=== PATIENT | male | born 1975 | race Caucasian/White ===

== ENCOUNTER 2020-07-24 20:35 | Observation (INO) | payer OTHER ==
[2020-07-24] MEDS ORDERED: MORPHINE SULFATE 2 MG INJ IV ONE (20:50)
[2020-07-24] MEDS ORDERED: Zofran 4 MG/2 ML VIAL IV ONE (20:50)
[2020-07-24] MEDS ORDERED: Sodium Chloride 0.9% 1000 ML 1,000 ML IV SCH (21:00)
[2020-07-24] MEDS ORDERED: MORPHINE SULFATE 2 MG INJ ONE (21:01)
[2020-07-24] MEDS ORDERED: Sodium Chloride 0.9% 1000 ML 1,000 ML ONE (21:01)
[2020-07-24] MEDS ORDERED: Zofran 4 MG/2 ML VIAL ONE (21:01)
--- NOTE | 2020-07-24 21:08 | ERPHSYRPT ---
- History of Present Illness Time Seen by Provider: 07/24/20 20:55 Historian: patient Exam Limitations: no limitations Patient Subjective Stated Complaint: pt c/o mid abd pain at belly button. Pt states, "I picked up the front end of the envelope addresser to get the water out of it and I felt a pulling". Triage Nursing Assessment: Pt c/o pain to umbilical area. Pt's abd is lg, round, obese with active bs x4 quad, nontender on palpation. Pt states, "i picked up the front end of the envelope addresser to get the water out of it and I felt a pulling feeling". Ice pack applied to area and pt placed in reverse [place]. Physician History: Patient is a 44-year-old male presents to our ED with complaints of pain at the periumbilical region. Patient states he has an umbilical hernia that occurred several months back while bench pressing with his son. Patient followed up with his primary care doctor and told him he had a umbilical hernia. He did not have any significant pain at that time. However today patient was lifting a lawn more and felt an acute onset pain at the periumbilical region. Pain described as an ache that is localized. No radiation. Pain worse with palpation to the umbilicus. Pain improved with rest. No blood in stool. No trauma. No fever. No nausea or vomiting. No diarrhea or rash. Symptoms are mild to moderate in intensity. Patient voices no other complaints at this time. Timing/Duration: today Activities at Onset: other (Lifting) Quality: aching Abdominal Pain Onset Location: other (Pain at the umbilicus) Pain Radiation: no radiation Severity of Pain-Max: moderate Severity of Pain-Current: mild Modifying Factors: Improves With: coughing, movement Associated Symptoms: denies symptoms Previous symptoms: other (History of umbilical hernia.) Allergies/Adverse Reactions: No Known Drug Allergies Allergy (Verified 07/24/20 21:04) Home Medications: Gabapentin [Neurontin] 800 mg PO TID 03/05/16 [History] Atorvastatin Calcium [Lipitor] 80 mg PO DAILY 07/24/20 [History] Losartan/Hydrochlorothiazide [Losartan-Hctz 50-12.5 mg Tab] 1 tab PO DAILY 07/24/20 [History] Tizanidine HCl 2 mg PO TID 07/24/20 [History] Tramadol HCl 50 mg [Ultram 50 mg] 1 tab PO QID 07/24/20 [History] Hx Tetanus, Diphtheria Vaccination/Date Given: Yes Hx Influenza Vaccination/Date Given: No Hx Pneumococcal Vaccination/Date Given: No Immunizations Up to Date: Yes Travel Risk - International Travel Have you traveled outside of the country in past 3 weeks: No - Coronavirus Screening Are you exhibiting any of the following symptoms?: No Close contact with a COVID-19 positive Pt in past 14-21 Days: No - Vaccine Status Have you recieved a Covid-19 vaccination: No - Review of Systems Constitutional: No Symptoms, No Fever, No Chills Eyes: No Symptoms Ears, Nose, & Throat: No Symptoms Respiratory: No Symptoms, No Cough, No Dyspnea Cardiac: No Symptoms, No Chest Pain, No Edema, No Syncope Abdominal/Gastrointestinal: No Symptoms, No Abdominal Pain, No Nausea, No Vomiting, No Diarrhea Genitourinary Symptoms: No Symptoms, No Dysuria Musculoskeletal: No Symptoms, No Back Pain, No Neck Pain Skin: No Symptoms, No Rash Neurological: No Symptoms, No Dizziness, No Focal Weakness, No Sensory Changes Psychological: No Symptoms Endocrine: No Symptoms Hematologic/Lymphatic: No Symptoms Immunological/Allergic: No Symptoms All Other Systems: Reviewed and Negative - Past Medical History Pertinent Past Medical History: Yes Neurological History: No Pertinent History Cardiac History: High Cholesterol, Hypertension Respiratory History: Bronchitis Endocrine Medical History: No Pertinent History Musculoskeletal History: Arthritis, Other GI Medical History: No Pertinent History History: No Pertinent History Psycho-Social History: No Pertinent History Male Reproductive Disorders: No Pertinent History Other Medical History: herniated disk L4-L5. back pain - Past Surgical History Past Surgical History: Yes Neuro Surgical History: No Pertinent History Cardiac: No Pertinent History Respiratory: No Pertinent History Gastrointestinal: No Pertinent History Genitourinary: No Pertinent History Musculoskeletal: No Pertinent History Male Surgical History: No Pertinent History Other Surgical History: cyst on buttock removed - Social History Smoking Status: Current every day smoker How long have you smoked: 24 yrs Exposure to second hand smoke: Yes Drug Use: none Patient Lives Alone: No - Nursing Vital Signs Nursing Vital Signs: Initial Vital Signs Temperature 98.2 F 07/24/20 20:48 Pulse Rate 116 H 07/24/20 20:48 Respiratory Rate 22 07/24/20 20:48 Blood Pressure 140/82 07/24/20 20:48 O2 Sat by Pulse Oximetry 97 07/24/20 20:48 Pain Scale Pain Intensity 0 - Physical Exam General Appearance: no apparent distress, alert Eye Exam: PERRL/EOMI, eyes nml inspection Ears, Nose, Throat Exam: normal ENT inspection, pharynx normal, moist mucous membranes Neck Exam: normal inspection, non-tender, supple, full range of motion Respiratory Exam: normal breath sounds, lungs clear, No respiratory distress Cardiovascular Exam: regular rate/rhythm, normal heart sounds Gastrointestinal/Abdomen Exam: soft, tenderness, other (Tenderness to palpation at the umbilicus.), No mass Back Exam: normal inspection, normal range of motion, No CVA tenderness, No vertebral tenderness Extremity Exam: normal inspection, normal range of motion, pelvis stable Neurologic Exam: alert, oriented x 3, cooperative, normal mood/affect, nml cerebellar function, sensation nml, No motor deficits Skin Exam: normal color, warm, dry Lymphatic Exam: No adenopathy SpO2 Interpretation: normal SpO2: 97 O2 Delivery: Room Air - Course Nursing assessment & vital signs reviewed: Yes - CT Exams Abdomen/Pelvis CT Interpretation: Tele-radiologist Report (Mild left periumbilical anterior wall defect with small bowel herniation through the defect. No definitive evidence of incarceration or obstruction.) Ordered Tests: Active Orders 24 hr Category Date Time Status IV Insertion STAT Care 07/24/20 20:50 Active ABDOMEN AND PELVIS W CONTRAST [CT] Stat Exams 07/24/20 20:50 Taken CBC W DIFF Stat Lab 07/24/20 21:00 Completed CMP Stat Lab 07/24/20 21:00 Completed LIPASE Stat Lab 07/24/20 21:00 Completed Manual Differential NC Stat Lab 07/24/20 21:00 Completed Transfer Order Routine Transfer 07/25/20 Ordered Medication Summary Generic Name Dose Route Start Last Admin Trade Name Freq PRN Reason Stop Dose Admin Sodium Chloride 1,000 mls @ 100 mls/hr 07/24/20 21:00 07/24/20 21:04 Sodium Chloride 0.9% 1000 Ml IV 08/23/20 20:59 100 mls/hr .Q10H ROSALES Administration Discontinued Medications Generic Name Dose Route Start Last Admin Trade Name Freq PRN Reason Stop Dose Admin Piperacillin Sod/Tazobactam 100 mls @ 200 mls/hr 07/25/20 00:24 07/25/20 00: 37 Sod 3.375 gm/ Sodium Chloride IV 07/25/20 00:53 200 mls/hr STAT ONE Administration Sodium Chloride Confirm 07/25/20 00:33 Sodium Chloride 100ml Mini-Bag Plus Administered 07/25/20 00:34 Dose 100 mls @ ud IV .STK-MED ONE Morphine Sulfate 2 mg 07/24/20 20:50 07/24/20 21:04 Morphine Sulfate 2 Mg Inj IV 07/24/20 20:51 2 mg STAT ONE Administration Morphine Sulfate Confirm 07/24/20 21:01 Morphine Sulfate 2 Mg Inj Administered 07/24/20 21:02 Dose 2 mg .ROUTE .STK-MED ONE Morphine Sulfate 4 mg 07/25/20 00:16 07/25/20 00:26 Morphine Sulfate 4 Mg Inj IV 07/25/20 00:17 4 mg STAT ONE Administration Morphine Sulfate Confirm 07/25/20 00:24 Morphine Sulfate 4 Mg Inj Administered 07/25/20 00:25 Dose 4 mg .ROUTE .STK-MED ONE Ondansetron HCl 4 mg 07/24/20 20:50 07/24/20 21:04 Zofran 4 Mg/2 Ml Vial IV 07/24/20 20:51 4 mg STAT ONE Administration Ondansetron HCl Confirm 07/24/20 21:01 Zofran 4 Mg/2 Ml Vial Administered 07/24/20 21:02 Dose 4 mg .ROUTE .STK-MED ONE Piperacillin Sod/Tazobactam Sod Confirm 07/25/20 00:33 Zosyn 3.375 Gm Vial Administered 07/25/20 00:34 Dose 3.375 gm IV .STK-MED ONE Lab/Rad Data: Laboratory Result Diagrams 07/24/20 21:00 07/24/20 21:00 Laboratory Results 07/25/20 07/24/20 07/24/20 Range/Units 00:49 21:00 21:00 WBC 15.9 H (4.0-10.5) K/mm3 RBC 4.80 (4.1-5.6) M/mm3 Hgb 14.9 (12.5-18.0) gm/dl Hct 45.9 (42-50) % MCV 95.6 (78-100) fl MCH 31.0 (26-32) pg MCHC 32.5 (32-36) g/dl RDW 14.0 (11.5-14.0) % Plt Count 351 (150-450) K/mm3 MPV 9.3 (7.5-11.0) fl Segmented Neutrophils 65 (36.-66.) % Lymphocytes (Manual) 23 L (24-44) % Monocytes (Manual) 9 (0.0-12.0) % Eosinophils (Manual) 2 (0.00-3.0) % Basophils (Manual) 1 (0.0-1.0) % Platelet Estimate NORMAL (NORMAL) RBC Morphology NORMAL Sodium 137 (137-145) mmol/L Potassium 3.9 (3.5-5.1) mmol/L Chloride 98 (98-107) mmol/L Carbon Dioxide 29 (22-30) mmol/L Anion Gap 13.5 (5-15) MEQ/L BUN 22 H (9-20) mg/dL Creatinine 1.16 (0.66-1.25) mg/dL Estimated GFR > 60.0 ML/MIN Glucose 107 H (74-106) mg/dL Calcium 9.4 (8.4-10.2) mg/dL Total Bilirubin 0.60 (0.2-1.3) mg/dL AST 74 H (17-59) U/L ALT 114 H (0-50) U/L Alkaline Phosphatase 99 (38-126) U/L Serum Total Protein 7.5 (6.3-8.2) g/dL Albumin 4.7 (3.5-5.0) g/dL Lipase 277 (23-300) U/L Influenza Type A Ag NEGATIVE (NEGATIVE) Influenza Type B Ag NEGATIVE (NEGATIVE) RSV (PCR) NEGATIVE (Negative) SARS-CoV-2 (PCR) NEGATIVE (NEGATIVE) - Progress Progress: improved Progress Note: We attempted to reduce patient's periumbilical hernia while in Trendelenburg and after application of cold pack to the involved area. However this was not successful. Patient continued to complain of pain rated 4 out of 10. Additional morphine ordered. Labs show a leukocytosis. Otherwise negative. Case discussed with Dr. Matthews on-call general surgery. We will admit patient to hospitalist with general surgery on consult. We will keep patient n.p.o. overnight. Due to the leukocytosis and abdominal pain patient will receive a dose of Zosyn IV. Plan of care discussed with patient. He agrees to admission to [facility] for further evaluation and treatment. Patient is Covid negative 07/25/20 00:26 07/25/20 02:[address] Emmie (Case discussed Dr. Marie who accepts admi ssion to observation.), Other (Case discussed with Dr. Judson Matthews. He will see patient in hospital as a consult.) Counseled pt/family regarding: lab results, diagnosis, rad results - Departure Departure Disposition: Home Clinical Impression: Paraumbilical hernia, Hepatic cyst, Gall bladder polyp, Gallstone, Facet arthritis, degenerative, L5-S1 level, lumbosacral spine, Inguinal hernia, Leukocytosis Condition: Stable Critical Care Time: No Referrals: LAKSHMI BULLOCK, QUANTITATIVE STRATEGY ANALYST [Primary Care Provider] -
[2020-07-24 21:26] LABS: Hematocrit 45.9 % (42-50); Hemoglobin 14.9 gm/dl (12.5-18.0); Mean Cell Volume 95.6 fl (78-100); Mean Corpuscular Hgb Concent. 32.5 g/dl (32-36); Mean Platelet Volume 9.3 fl (7.5-11.0); Platelet Count 351 K/mm3 (150-450); White Blood Count 15.9 K/mm3 (4.0-10.5)
[2020-07-24 21:41] LABS: ALBUMIN 4.7 g/dL (3.5-5.0); ALKALINE PHOSPHATASE 99 U/L (38-126); ANION GAP 13.5 MEQ/L (5-15); BLOOD UREA NITROGEN 22 mg/dL (9-20); CHLORIDE 98 mmol/L (98-107); Calcium 9.4 mg/dL (8.4-10.2); Carbon Dioxide 29 mmol/L (22-30); Creatinine 1 1.16 mg/dL (0.66-1.25); EST GLOMERULAR FILTRATION RATE > 60.0 ML/MIN; Glucose 107 mg/dL (74-106); LIPASE 277 U/L (23-300); Potassium 3.9 mmol/L (3.5-5.1); SGOT/AST 74 U/L (17-59); SGPT/ALT 114 U/L (0-50); SODIUM 137 mmol/L (137-145); Total Protein 7.5 g/dL (6.3-8.2)
[2020-07-24 23:10] LABS: Basophil 1 % (0.0-1.0); Eosinophil 2 % (0.00-3.0); Lymphocytes 23 % (24-44); Monocyte 9 % (0.0-12.0); Neutrophils 65 % (36.-66.); Platelet Estimate NORMAL (NORMAL); Total Cells Counted 100
[2020-07-25] MEDS ORDERED: MORPHINE SULFATE 4 MG INJ IV ONE (00:16)
[2020-07-25] MEDS ORDERED: MORPHINE SULFATE 4 MG INJ ONE (00:24)
[2020-07-25] MEDS ORDERED: Zosyn 3.375 GM Vial 3.375 GM in Sodium Chloride 100ML MINI-BAG PLUS 100 ML IV ONE (00:24)
[2020-07-25] MEDS ORDERED: Zosyn 3.375 GM Vial IV ONE (00:33)
[2020-07-25] MEDS ORDERED: Sodium Chloride 100ML MINI-BAG PLUS 100 ML IV ONE (00:33)
[2020-07-25 01:43] LABS: INFLUENZA A NEGATIVE (NEGATIVE); INFLUENZA B NEGATIVE (NEGATIVE); RESPIRATORY SYNCTIAL VIRUS NEGATIVE (Negative)
[2020-07-25] MEDS ORDERED: Zofran 4 MG/2 ML VIAL IV PRN (02:44)
[2020-07-25] MEDS: Sodium Chloride 0.9% 1000 ML 1,000 ML IV SCH ×3 (03:50→22:22)
[2020-07-25 05:35] LABS: BASOPHIL % 0.2 % (0.0-0.4); Basophil (Absolute #) 0.02 (0-0.4); Eosinophil % 2.4 % (0.00-5.0); Eosinophil (Absolute #) 0.28 (0-0.5); Hematocrit 42.3 % (42-50); Hemoglobin 13.7 gm/dl (12.5-18.0); Lymphocyte (Absolute #) 3.31 (1.0-4.6); Lymphocytes % 28.3 % (24.0-44.0); Mean Corpuscular Hemoglobin 31.4 pg (26-32); Mean Corpuscular Hgb Concent. 32.4 g/dl (32-36); Mean Platelet Volume 9.3 fl (7.5-11.0); Monocytes % 8.5 % (0.0-12.0); Neutrophil % 60.6 % (36.0-66.0); Platelet Count 301 K/mm3 (150-450); Red Blood Count 4.36 M/mm3 (4.1-5.6); Red Cell Distribution Width 13.9 % (11.5-14.0); White Blood Count 11.7 K/mm3 (4.0-10.5)
[2020-07-25 06:12] LABS: ALBUMIN 4.1 g/dL (3.5-5.0); ALKALINE PHOSPHATASE 89 U/L (38-126); ANION GAP 16.6 MEQ/L (5-15); BLOOD UREA NITROGEN 18 mg/dL (9-20); CHLORIDE 102 mmol/L (98-107); Calcium 8.7 mg/dL (8.4-10.2); Carbon Dioxide 23 mmol/L (22-30); Creatinine 1 0.95 mg/dL (0.66-1.25); EST GLOMERULAR FILTRATION RATE > 60.0 ML/MIN; Glucose 199 mg/dL (74-106); Potassium 3.7 mmol/L (3.5-5.1); SGOT/AST 53 U/L (17-59); SGPT/ALT 81 U/L (0-50); SODIUM 138 mmol/L (137-145); Total Protein 6.6 g/dL (6.3-8.2)
--- NOTE | 2020-07-25 08:56 | XRAY ---
Indication: Periumbilical pain. Multiple contiguous axial images obtained through the abdomen and pelvis using 80 cc Isovue 370 contrast. Comparison: None Lung bases demonstrates tiny right lower lobe calcified granuloma. No infiltrate or effusion. Heart not enlarged. Stomach is distended with food/fluid. Noncontrasted stomach and bowel loops appear nonobstructed. Appendix not seen. No free fluid/air. Liver demonstrates diffuse fatty attenuation with 8 mm left lobe cyst versus hemangioma. Tiny gallstone/gravel near the neck of the gallbladder. Remaining liver, gallbladder, pancreas, spleen, adrenal glands, kidneys, ureters, and bladder unremarkable. Minimal aortoiliac calcifications. No AAA or pathologic retroperitoneal lymphadenopathy. Osseous structures intact with L5-S1 degenerative disc disc space loss and vacuum disc phenomena. Small umbilical hernia with a knuckle of small bowel herniating without incarceration/obstruction. Impression: 1. Small umbilical hernia with a knuckle of herniated small bowel loop without complications. 2. Incidental fatty liver, tiny hepatic cyst/hemangioma, and tiny gallstones/gravel. Comment: Preliminary interpretation was made by [facility]. No critical discrepancy.
[2020-07-25] MEDS: MORPHINE SULFATE 4 MG INJ IV PRN ×4 (09:03→22:25)
--- NOTE | 2020-07-25 09:10 | PCM.HP ---
History of Present Illness - Chief Complaint Chief Complaint: Periumbilical hernia. History of Present Illness: is a 44 year old male. hx per chart review and d/w pt 44yo no prior abdominal surgeries. c/o pain at umbilical area. worse with activity. came to ED. seemed reducible but still painful and immediately recurrent so pt admitted to obs. pain is doing better now, but still bothersome. "Patient Subjective Stated Complaint: pt c/o mid abd pain at belly button. Pt states, "I picked up the front end of the drilling engineer to get the water out of it and I felt a pulling". Triage Nursing Assessment: Pt c/o pain to umbilical area. Pt's abd is lg, round, obese with active bs x4 quad, nontender on palpation. Pt states, "i picked up the front end of the drilling engineer to get the water out of it and I felt a pulling feeling". Ice pack applied to area and pt placed in reverse trendelburg. Physician History: Patient is a 44-year-old male presents to our ED with complaints of pain at the periumbilical region. Patient states he has an umbilical hernia that occurred several months back while bench pressing with his son. Patient followed up with his primary care doctor and told him he had a umbilical hernia. He did not have any significant pain at that time. However today patient was lifting a lawn more and felt an acute onset pain at the periumbilical region. Pain described as an ache that is localized. No radiation. Pain worse with palpation to the umbilicus. Pain improved with rest. No blood in stool. No trauma. No fever. No nausea or vomiting. No diarrhea or rash. Symptoms are mild to moderate in intensity. Patient voices no other complaints at this time. Timing/Duration: today Activities at Onset: other (Lifting) Quality: aching Abdominal Pain Onset Location: other (Pain at the umbilicus) Pain Radiation: no radiation Severity of Pain-Max: moderate Severity of Pain-Current: mild Modifying Factors: Improves With: coughing, movement Associated Symptoms: denies symptoms Previous symptoms: other (History of umbilical hernia.) Allergies/Adverse Reactions: No Known Drug Allergies Allergy (Verified 07/24/20 21:04) Home Medications: Gabapentin [Neurontin] 800 mg PO TID 03/05/16 [History] Atorvastatin Calcium [Lipitor] 80 mg PO DAILY 07/24/20 [History] Losartan/Hydrochlorothiazide [Losartan-Hctz 50-12.5 mg Tab] 1 tab PO DAILY 07/24/20 [History] Tizanidine HCl 2 mg PO TID 07/24/20 [History] Tramadol HCl 50 mg [Ultram 50 mg] 1 tab PO QID 07/24/20 [History] Hx Tetanus, Diphtheria Vaccination/Date Given: Yes Hx Influenza Vaccination/Date Given: No Hx Pneumococcal Vaccination/Date Given: No Immunizations Up to Date: Yes Travel Risk - International Travel Have you traveled outside of the country in past 3 weeks: No - Coronavirus Screening Are you exhibiting any of the following symptoms?: No Close contact with a COVID-19 positive Pt in past 14-21 Days: No - Vaccine Status Have you recieved a Covid-19 vaccination: No - Review of Systems Constitutional: No Symptoms, No Fever, No Chills Eyes: No Symptoms Ears, Nose, & Throat: No Symptoms Respiratory: No Symptoms, No Cough, No Dyspnea Cardiac: No Symptoms, No Chest Pain, No Edema, No Syncope Abdominal/Gastrointestinal: No Symptoms, No Abdominal Pain, No Nausea, No Vomiting, No Diarrhea Genitourinary Symptoms: No Symptoms, No Dysuria Musculoskeletal: No Symptoms, No Back Pain, No Neck Pain Skin: No Symptoms, No Rash Neurological: No Symptoms, No Dizziness, No Focal Weakness, No Sensory Changes Psychological: No Symptoms Endocrine: No Symptoms Hematologic/Lymphatic: No Symptoms Immunological/Allergic: No Symptoms All Other Systems: Reviewed and Negative - Past Medical History Pertinent Past Medical History: Yes Neurological History: No Pertinent History Cardiac History: High Cholesterol, Hypertension Respiratory History: Bronchitis Endocrine Medical History: No Pertinent History Musculoskeletal History: Arthritis, Other GI Medical History: No Pertinent History History: No Pertinent History Psycho-Social History: No Pertinent History Male Reproductive Disorders: No Pertinent History Other Medical History: herniated disk L4-L5. back pain - Past Surgical History Past Surgical History: Yes Neuro Surgical History: No Pertinent History Cardiac: No Pertinent History Respiratory: No Pertinent History Gastrointestinal: No Pertinent History Genitourinary: No Pertinent History Musculoskeletal: No Pertinent History Male Surgical History: No Pertinent History Other Surgical History: cyst on buttock removed - Social History Smoking Status: Current every day smoker How long have you smoked: 24 yrs Exposure to second hand smoke: Yes Drug Use: none Patient Lives Alone: No" Medications & Allergies Home Medications: Home Medication List Gabapentin [Neurontin] 800 mg PO TID 03/05/16 [History Confirmed 07/24/20] Atorvastatin Calcium [Lipitor] 80 mg PO DAILY 07/24/20 [History Confirmed 07/24/20] Losartan/Hydrochlorothiazide [Losartan-Hctz 50-12.5 mg Tab] 1 tab PO DAILY 07/24/20 [History Confirmed 07/24/20] Tizanidine HCl 2 mg PO TID 07/24/20 [History Confirmed 07/25/20] Tramadol HCl 50 mg [Ultram 50 mg] 1 tab PO QID 07/24/20 [History Confirmed 07/24/20] Allergies/Adverse Reactions: Allergies Allergy/AdvReac Type Severity Reaction Status Date / Time No Known Drug Allergies Allergy Verified 07/25/20 02:56 - Past Medical History Past Medical History: Yes Neurological History: No Pertinent History ENT History: No Pertinent History Cardiac History: High Cholesterol, Hypertension Respiratory History: Asthma, Bronchitis Endocrine Medical History: No Pertinent History Musculoskelatal History: Arthritis, Other GI Medical History: No Pertinent History History: No Pertinent History Pyscho-Social History: No Pertinent History Male Reproductive Disorders: No Pertinent History Comment: herniated disk L4-L5. back pain - Past Surgical History Past Surgical History: Yes Neuro Surgical History: No Pertinent History Cardiac History: No Pertinent History Respiratory Surgery: No Pertinent History GI Surgical History: No Pertinent History Genitourinary Surgical Hx: No Pertinent History Musculskeletal Surgical Hx: No Pertinent History Male Surgical History: No Pertinent History Other Surgical History: cyst on buttock removed - Social History Smoking Status: Current every day smoker How long have you smoked: 20 years Exposure to second hand smoke: Yes Alcohol: Rarely Drug Use: none - Physical Exam Vital Signs: Vital Signs - 24 hr Temp Pulse Resp BP Pulse Ox 07/25/20 08:28 94 L 07/25/20 07:31 97.9 F 72 16 140/72 98 07/25/20 05:11 97.7 F 82 16 120/78 97 07/25/20 03:36 94 L 07/25/20 02:44 97.7 F 82 16 120/78 97 07/25/20 02:40 97.7 F 82 16 120/78 97 07/25/20 02:24 97 07/25/20 02:00 83 18 116/84 96 07/25/20 01:00 84 16 122/74 94 L 07/25/20 00:00 90 18 144/97 97 07/24/20 23:00 92 H 20 105/71 97 07/24/20 22:00 98 H 20 118/68 98 07/24/20 21:00 104 H 20 114/81 96 07/24/20 20:48 98.2 F 116 H 22 140/82 97 General Appearance: no apparent distress, alert Neurologic Exam: alert, oriented x 3 Eye Exam: eyes nml inspection, scleral icterus Neck Exam: normal inspection Respiratory Exam: No respiratory distress Cardiovascular Exam: regular rate/rhythm Gastrointestinal/Abdomen Exam: soft, tenderness, other (umbo hernia 1.5cm defect, reducible. mildly ttp. no r/g.), No distention, No mass Skin Exam: warm, dry Results - Labs Lab/Micro Results: Lab Results-Last 24 Hours 07/24/20 07/24/20 07/25/20 Range/Units 21:00 21:00 00:49 WBC 15.9 H (4.0-10.5) K/mm3 RBC 4.80 (4.1-5.6) M/mm3 Hgb 14.9 (12.5-18.0) gm/dl Hct 45.9 (42-50) % MCV 95.6 (78-100) fl MCH 31.0 (26-32) pg MCHC 32.5 (32-36) g/dl RDW 14.0 (11.5-14.0) % Plt Count 351 (150-450) K/mm3 MPV 9.3 (7.5-11.0) fl Gran % (36.0-66.0) % Eos # (Auto) (0-0.5) Absolute Lymphs (auto) (1.0-4.6) Absolute Monos (auto) (0.0-1.3) Lymphocytes % (24.0-44.0) % Monocytes % (0.0-12.0) % Eosinophils % (0.00-5.0) % Basophils % (0.0-0.4) % Absolute Granulocytes (1.4-6.9) Segmented Neutrophils 65 (36.-66.) % Lymphocytes (Manual) 23 L (24-44) % Monocytes (Manual) 9 (0.0-12.0) % Eosinophils (Manual) 2 (0.00-3.0) % Basophils (Manual) 1 (0.0-1.0) % Basophils # (0-0.4) Platelet Estimate NORMAL (NORMAL) RBC Morphology NORMAL Sodium 137 (137-145) mmol/L Potassium 3.9 (3.5-5.1) mmol/L Chloride 98 (98-107) mmol/L Carbon Dioxide 29 (22-30) mmol/L Anion Gap 13.5 (5-15) MEQ/L BUN 22 H (9-20) mg/dL Creatinine 1.16 (0.66-1.25) mg/dL Estimated GFR > 60.0 ML/MIN Glucose 107 H (74-106) mg/dL Calcium 9.4 (8.4-10.2) mg/dL Total Bilirubin 0.60 (0.2-1.3) mg/dL AST 74 H (17-59) U/L ALT 114 H (0-50) U/L Alkaline Phosphatase 99 (38-126) U/L Serum Total Protein 7.5 (6.3-8.2) g/dL Albumin 4.7 (3.5-5.0) g/dL Lipase 277 (23-300) U/L Influenza Type A Ag NEGATIVE (NEGATIVE) Influenza Type B Ag NEGATIVE (NEGATIVE) RSV (PCR) NEGATIVE (Negative) SARS-CoV-2 (PCR) NEGATIVE (NEGATIVE) 07/25/20 07/25/20 Range/Units 05:07 05:07 WBC 11.7 H (4.0-10.5) K/mm3 RBC 4.36 (4.1-5.6) M/mm3 Hgb 13.7 (12.5-18.0) gm/dl Hct 42.3 (42-50) % MCV 97.0 (78-100) fl MCH 31.4 (26-32) pg MCHC 32.4 (32-36) g/dl RDW 13.9 (11.5-14.0) % Plt Count 301 (150-450) K/mm3 MPV 9.3 (7.5-11.0) fl Gran % 60.6 (36.0-66.0) % Eos # (Auto) 0.28 (0-0.5) Absolute Lymphs (auto) 3.31 (1.0-4.6) Absolute Monos (auto) 1.00 (0.0-1.3) Lymphocytes % 28.3 (24.0-44.0) % Monocytes % 8.5 (0.0-12.0) % Eosinophils % 2.4 (0.00-5.0) % Basophils % 0.2 (0.0-0.4) % Absolute Granulocytes 7.10 H (1.4-6.9) Segmented Neutrophils (36.-66.) % Lymphocytes (Manual) (24-44) % Monocytes (Manual) (0.0-12.0) % Eosinophils (Manual) (0.00-3.0) % Basophils (Manual) (0.0-1.0) % Basophils # 0.02 (0-0.4) Platelet Estimate (NORMAL) RBC Morphology Sodium 138 (137-145) mmol/L Potassium 3.7 (3.5-5.1) mmol/L Chloride 102 (98-107) mmol/L Carbon Dioxide 23 (22-30) mmol/L Anion Gap 16.6 H (5-15) MEQ/L BUN 18 (9-20) mg/dL Creatinine 0.95 (0.66-1.25) mg/dL Estimated GFR > 60.0 ML/MIN Glucose 199 H (74-106) mg/dL Calcium 8.7 (8.4-10.2) mg/dL Total Bilirubin 0.70 (0.2-1.3) mg/dL AST 53 (17-59) U/L ALT 81 H (0-50) U/L Alkaline Phosphatase 89 (38-126) U/L Serum Total Protein 6.6 (6.3-8.2) g/dL Albumin 4.1 (3.5-5.0) g/dL Lipase (23-300) U/L Influenza Type A Ag (NEGATIVE) Influenza Type B Ag (NEGATIVE) RSV (PCR) (Negative) SARS-CoV-2 (PCR) (NEGATIVE) - Radiology Impressions Radiology Exams & Impressions: Radiology Procedures Category Date Time Status ABDOMEN AND PELVIS W CONTRAST [CT] Stat Exams 07/24/20 20:50 Completed - Other Procedures and Tests Respiratory Therapy 07/25/20 05:34 Incentive Spirometry UD Assessment/Plan (1) Paraumbilical hernia Current Visit: Yes Status: Acute Assessment & Plan: reducible umbilical hernia. symptomatic. pt felt to be high risk of failing outpt treatment due to pain and poor understanding on the hernia. -07/26 umbilical hernia repair unless pt changes his mind and wants outpt scheduled. Code(s): K42.9 - UMBILICAL HERNIA WITHOUT OBSTRUCTION OR GANGRENE
[2020-07-25] MEDS: NICODERM CQ 14 MG TOP SCH (16:39)
--- NOTE | 2020-07-25 18:27 | PCM.NOTE ---
Date and Time: 07/25/201826 OBJECTIVE DATA Vital Signs: Vital Signs - 24 hr Temp Pulse Resp BP Pulse Ox 07/25/20 16:00 97.9 F 96 H 16 126/80 92 L 07/25/20 11:35 98.4 F 90 11 L 129/60 94 L 07/25/20 08:28 94 L 07/25/20 07:31 97.9 F 72 16 140/72 98 07/25/20 05:11 97.7 F 82 16 120/78 97 07/25/20 03:36 94 L 07/25/20 02:44 97.7 F 82 16 120/78 97 07/25/20 02:40 97.7 F 82 16 120/78 97 07/25/20 02:24 97 07/25/20 02:00 83 18 116/84 96 07/25/20 01:00 84 16 122/74 94 L 07/25/20 00:00 90 18 144/97 97 07/24/20 23:00 92 H 20 105/71 97 07/24/20 22:00 98 H 20 118/68 98 07/24/20 21:00 104 H 20 114/81 96 07/24/20 20:48 98.2 F 116 H 22 140/82 97 Pain Assessment - Last Documented Pain Intensity 4 Pain Scale Used 0-10 Pain Scale Intake and Output: Intake & Output 07/23/20 07/24/20 07/25/20 07/26/20 11:59 11:59 11:59 11:59 Intake Total 240 820 Balance 240 820 Weight 107.2 kg Lab Results: Lab Results-Last 24 Hours 07/24/20 07/24/20 07/25/20 Range/Units 21:00 21:00 00:49 WBC 15.9 H (4.0-10.5) K/mm3 RBC 4.80 (4.1-5.6) M/mm3 Hgb 14.9 (12.5-18.0) gm/dl Hct 45.9 (42-50) % MCV 95.6 (78-100) fl MCH 31.0 (26-32) pg MCHC 32.5 (32-36) g/dl RDW 14.0 (11.5-14.0) % Plt Count 351 (150-450) K/mm3 MPV 9.3 (7.5-11.0) fl Gran % (36.0-66.0) % Eos # (Auto) (0-0.5) Absolute Lymphs (auto) (1.0-4.6) Absolute Monos (auto) (0.0-1.3) Lymphocytes % (24.0-44.0) % Monocytes % (0.0-12.0) % Eosinophils % (0.00-5.0) % Basophils % (0.0-0.4) % Absolute Granulocytes (1.4-6.9) Segmented Neutrophils 65 (36.-66.) % Lymphocytes (Manual) 23 L (24-44) % Monocytes (Manual) 9 (0.0-12.0) % Eosinophils (Manual) 2 (0.00-3.0) % Basophils (Manual) 1 (0.0-1.0) % Basophils # (0-0.4) Platelet Estimate NORMAL (NORMAL) RBC Morphology NORMAL Sodium 137 (137-145) mmol/L Potassium 3.9 (3.5-5.1) mmol/L Chloride 98 (98-107) mmol/L Carbon Dioxide 29 (22-30) mmol/L Anion Gap 13.5 (5-15) MEQ/L BUN 22 H (9-20) mg/dL Creatinine 1.16 (0.66-1.25) mg/dL Estimated GFR > 60.0 ML/MIN Glucose 107 H (74-106) mg/dL Calcium 9.4 (8.4-10.2) mg/dL Total Bilirubin 0.60 (0.2-1.3) mg/dL AST 74 H (17-59) U/L ALT 114 H (0-50) U/L Alkaline Phosphatase 99 (38-126) U/L Serum Total Protein 7.5 (6.3-8.2) g/dL Albumin 4.7 (3.5-5.0) g/dL Lipase 277 (23-300) U/L Influenza Type A Ag NEGATIVE (NEGATIVE) Influenza Type B Ag NEGATIVE (NEGATIVE) RSV (PCR) NEGATIVE (Negative) SARS-CoV-2 (PCR) NEGATIVE (NEGATIVE) 07/25/20 07/25/20 Range/Units 05:07 05:07 WBC 11.7 H (4.0-10.5) K/mm3 RBC 4.36 (4.1-5.6) M/mm3 Hgb 13.7 (12.5-18.0) gm/dl Hct 42.3 (42-50) % MCV 97.0 (78-100) fl MCH 31.4 (26-32) pg MCHC 32.4 (32-36) g/dl RDW 13.9 (11.5-14.0) % Plt Count 301 (150-450) K/mm3 MPV 9.3 (7.5-11.0) fl Gran % 60.6 (36.0-66.0) % Eos # (Auto) 0.28 (0-0.5) Absolute Lymphs (auto) 3.31 (1.0-4.6) Absolute Monos (auto) 1.00 (0.0-1.3) Lymphocytes % 28.3 (24.0-44.0) % Monocytes % 8.5 (0.0-12.0) % Eosinophils % 2.4 (0.00-5.0) % Basophils % 0.2 (0.0-0.4) % Absolute Granulocytes 7.10 H (1.4-6.9) Segmented Neutrophils (36.-66.) % Lymphocytes (Manual) (24-44) % Monocytes (Manual) (0.0-12.0) % Eosinophils (Manual) (0.00-3.0) % Basophils (Manual) (0.0-1.0) % Basophils # 0.02 (0-0.4) Platelet Estimate (NORMAL) RBC Morphology Sodium 138 (137-145) mmol/L Potassium 3.7 (3.5-5.1) mmol/L Chloride 102 (98-107) mmol/L Carbon Dioxide 23 (22-30) mmol/L Anion Gap 16.6 H (5-15) MEQ/L BUN 18 (9-20) mg/dL Creatinine 0.95 (0.66-1.25) mg/dL Estimated GFR > 60.0 ML/MIN Glucose 199 H (74-106) mg/dL Calcium 8.7 (8.4-10.2) mg/dL Total Bilirubin 0.70 (0.2-1.3) mg/dL AST 53 (17-59) U/L ALT 81 H (0-50) U/L Alkaline Phosphatase 89 (38-126) U/L Serum Total Protein 6.6 (6.3-8.2) g/dL Albumin 4.1 (3.5-5.0) g/dL Lipase (23-300) U/L Influenza Type A Ag (NEGATIVE) Influenza Type B Ag (NEGATIVE) RSV (PCR) (Negative) SARS-CoV-2 (PCR) (NEGATIVE) Radiology Exams: Radiology Procedures Category Date Time Status ABDOMEN AND PELVIS W CONTRAST [CT] Stat Exams 07/24/20 20:50 Completed
[2020-07-25] MEDS: Neurontin 400 MG PO SCH (21:54)
[2020-07-25] MEDS: Zanaflex 4 MG PO SCH (21:55)
[2020-07-25] MEDS: ULTRAM 50 MG PO SCH (21:55)
[2020-07-26] MEDS ORDERED: CEFAZOLIN 2 GM-D5W BAG** 2 GM/50 ML ML IV SCH ×2 (03:00→11:00)
[2020-07-26] MEDS: MORPHINE SULFATE 4 MG INJ IV PRN ×3 (03:34→12:00)
--- NOTE | 2020-07-26 08:53 | PCM.NOTE ---
Date and Time: 07/26/20 0850 Subjective Assessment: Pt has no complaints. Is to have surgery at 1 pm today, so is NPO. - Review of Systems Constitutional: No Fever Abdominal/Gastrointestinal: Abdominal Pain Objective Exam General Appearance: no apparent distress, alert Neurologic Exam: oriented x 3, cooperative Skin Exam: normal color, warm, dry, No rash Eye Exam: eyes nml inspection Ears, Nose, Throat Exam: moist mucous membranes Neck Exam: normal inspection Respiratory Exam: normal breath sounds, lungs clear, No crackles/rales, No rhonchi, No wheezing Cardiovascular Exam: regular rate/rhythm, normal heart sounds, No murmur Gastrointestinal/Abdomen Exam: soft, normal bowel sounds, tenderness (periumbilical), hernia (umbilical; reducible), No mass, No guarding, No rebound Extremity Exam: No pedal edema, No swelling, No tenderness Back Exam: normal inspection, No rash OBJECTIVE DATA Vital Signs: Vital Signs - 24 hr Temp Pulse Resp BP Pulse Ox 07/26/20 08:00 96 07/26/20 07:50 97.6 F 81 18 114/74 97 07/26/20 04:00 97.6 F 71 19 128/69 96 07/26/20 00:00 98.0 F 83 19 135/77 95 07/25/20 19:47 98.2 F 77 18 131/69 95 07/25/20 16:00 97.9 F 96 H 16 126/80 92 L 07/25/20 11:35 98.4 F 90 11 L 129/60 94 L Pain Assessment - Last Documented Pain Intensity 6 Pain Scale Used 0-10 Pain Scale Intake and Output: Intake & Output 07/23/20 07/24/20 07/25/20 07/26/20 11:59 11:59 11:59 11:59 Intake Total 240 3539 Balance 240 3539 Weight 107.2 kg Radiology Exams: Radiology Procedures Category Date Time Status ABDOMEN AND PELVIS W CONTRAST [CT] Stat Exams 07/24/20 20:50 Completed Assessment/Plan (1) Paraumbilical hernia Current Visit: Yes Status: Acute Assessment & Plan: Surgery today, thank you. Code(s): K42.9 - UMBILICAL HERNIA WITHOUT OBSTRUCTION OR GANGRENE (2) Hyperglycemia Current Visit: Yes Status: Acute Assessment & Plan: checking a1c. Code(s): R73.9 - HYPERGLYCEMIA, UNSPECIFIED
[2020-07-26] MEDS ORDERED: CEFAZOLIN 2 GM-D5W BAG** 2 GM/50 ML ML IV ONE (08:57)
[2020-07-26] MEDS ORDERED: Sensorcaine 0.25% 10 ML ONE (09:32)
[2020-07-26] MEDS ORDERED: Lactated Ringers 1,000 ML IV ONE (09:32)
[2020-07-26] MEDS ORDERED: KEFZOL 1 GM ONE (09:32)
[2020-07-26] MEDS ORDERED: DIPRIVAN 200 MG/20 ML IV ONE (09:40)
[2020-07-26] MEDS ORDERED: Versed 2 MG/2 ML Injection ONE (09:41)
[2020-07-26] MEDS ORDERED: SUBLIMAZE 250 MCG/5 ML ONE (09:41)
[2020-07-26] MEDS ORDERED: NON-FORMULARY ITEM (Losartan/Hydrochlorothiazide [Losartan-Hctz 50-12.5 Mg Tab] 1 TAB) PO SCH (10:00)
[2020-07-26] MEDS ORDERED: Lactated Ringers 1,000 ML IV SCH (10:00)
[2020-07-26] MEDS ORDERED: NON-FORMULARY ITEM (Atorvastatin Calcium [Lipitor] 80 MG) PO SCH (10:00)
[2020-07-26] MEDS ORDERED: Quelicin Fliptop 200 MG/10 ML ONE (10:07)
[2020-07-26] MEDS ORDERED: Zemuron 100 MG/10 ML ONE (10:24)
[2020-07-26] MEDS ORDERED: Zofran 4 MG/2 ML VIAL ONE (10:44)
[2020-07-26] MEDS ORDERED: TORAdol 30 mg Injection ONE (10:44)
[2020-07-26] MEDS ORDERED: BRIDION 200MG/2ML IV ONE (10:47)
[2020-07-26] MEDS ORDERED: [UNRECOGNIZED DRUG - OTHER] PO PRN (11:00)
--- NOTE | 2020-07-26 11:06 | PCM.DCORD ---
- Discharge Disposition: Home, Self-Care Condition: Stable Prescriptions: New HYDROcodone bitartrate [Home Rx For [place] ] 1 each PO Q6H PRN #20 each MDD 4 PRN Reason: Pain No Action Gabapentin [Neurontin] 800 mg PO TID Tramadol HCl 50 mg [Ultram 50 mg] 1 tab PO QID Tizanidine HCl 2 mg PO TID Losartan/Hydrochlorothiazide [Losartan-Hctz 50-12.5 mg Tab] 1 tab PO DAILY Atorvastatin Calcium [Lipitor] 80 mg PO DAILY Follow up with: LAKSHMI BULLOCK [facility] [employer] [Primary Care Provider] -
[2020-07-26] MEDS: Neurontin 400 MG PO SCH ×3 (12:11→21:32)
[2020-07-26] MEDS: Zanaflex 4 MG PO SCH ×3 (12:11→21:31)
[2020-07-26] MEDS: hydroDIURIL 25 MG PO SCH (12:12)
[2020-07-26] MEDS: ULTRAM 50 MG PO SCH ×4 (12:13→22:30)
[2020-07-26] MEDS: Cozaar 50 MG PO SCH (12:13)
[2020-07-26] MEDS: ZOCOR 20MG PO SCH (12:13)
[2020-07-26] MEDS: NICODERM CQ 14 MG TOP SCH ×2 (12:14→18:10)
--- NOTE | 2020-07-26 13:08 | OP ---
SURGERY DATE/TIME: 07/26/2020 1006 PREOPERATIVE DIAGNOSIS: Reducible umbilical hernia. POSTOPERATIVE DIAGNOSIS: Reducible umbilical hernia. PROCEDURE: Primary repair of umbilical hernia. SURGEON: Anirudh Matthews M.D. ANESTHESIA: General. ESTIMATED BLOOD LOSS: Minimal. PATIENT CONDITION: Stable. COMPLICATIONS: None. SPECIMEN: None. HISTORY: The patient is a 44 year-old male presented to the emergency department with acute umbilical pain. CT with small bowel umbilical hernia. It was felt to be reducible but the patient was still having 5 out of 10 pain. He was evaluated on the floor. He has a reducible hernia. His pain markedly improved. He is having bowel function. Discussion had with the patient. Risk of infection, bleeding, injury to nearby structures, hernia recurrence, possibility of primary repair versus using mesh and he elected to proceed with surgery possible mesh depending on the size. FINDINGS: A 1.5 cm umbilical defect primary repair. DESCRIPTION OF PROCEDURE: The patient was brought to operating room. General anesthesia was induced. He was routinely prepped and draped. SCD's applied on. Preoperative antibiotic given. Time out was performed. The infraumbilical incision was made carried to the fascia. The umbilical sac isolated. The stalk taken off the fascia. The hernia sac was entered into the preperitoneal space. The fascia was freed up circumferentially. There was good fascia circumferentially. There was good hemostasis. The fascia was then closed with interrupted 0 PDS sutures. The defect was 1.5 cm in size. The umbilical stalk then tacked down with 3-0 Vicryl sutures, deep dermal 3-0 Vicryl placed. Skin closed with 4-0 Vicryl sutures. Steri-Strips and sterile dressing applied. All counts correct. The patient tolerated the procedure well with plans for extubation.
[2020-07-26] MEDS ORDERED: NORCO 5/325 MG PO ONE (15:10)
[2020-07-26] MEDS ORDERED: PERCOCET TABLET 5/325MG PO ONE (16:20)
[2020-07-26] MEDS ORDERED: NORCO 5/325 MG PO PRN (17:36)
[2020-07-26] MEDS: HYDROCODONE-ACETAMIN 10-325 MG PO PRN (20:32)
[2020-07-27] MEDS: HYDROCODONE-ACETAMIN 10-325 MG PO PRN ×3 (00:46→09:42)
[2020-07-27] MEDS: Cozaar 50 MG PO SCH (09:03)
[2020-07-27] MEDS: Neurontin 400 MG PO SCH (09:04)
[2020-07-27] MEDS: hydroDIURIL 25 MG PO SCH (09:04)
[2020-07-27] MEDS: Zanaflex 4 MG PO SCH (09:04)
[2020-07-27] MEDS: ZOCOR 20MG PO SCH (09:04)
[2020-07-27] MEDS: ULTRAM 50 MG PO SCH (09:04)
[2020-07-27] MEDS: NICODERM CQ 14 MG TOP SCH (09:05)
[2020-07-27 12:45] VITALS: BP 116/70; PULSE 76; O2SAT 97
== END 2020-07-27 10:52 | disposition home or self-care (01) ==
LOC: ED 20:35 → MED SURG 07-25 02:41
PROVIDERS: ADMIT Family Medicine; ATTEND Family Medicine
DX: K42.9 Umbilical hernia without obstruction or gangrene (principal); Z79.899 Other long term (current) drug therapy; R73.9 Hyperglycemia, unspecified; Z20.828 Contact with and (suspected) exposure to other viral communicable diseases; I10 Essential (primary) hypertension; E78.00 Pure hypercholesterolemia, unspecified
CPT/HCPCS: 0241U; 36000; 36415; 49585; 74177; 80053; 83036; 83690; 85025; 93268; 94760; 94762; 96360; 96374; 96375; 99284; G0378; J0330; J0690; J1885; J2250; J2270; J2405; J2704; J3010; L0625; A9270-GY

== ENCOUNTER 2020-09-25 08:14 | Emergency (ER) | payer OTHER ==
[2020-09-25] MEDS ORDERED: TORAdol 30 mg Injection IV ONE (09:16)
[2020-09-25] MEDS ORDERED: TORAdol 30 mg Injection ONE (09:37)
[2020-09-25] MEDS ORDERED: DECADRON 10MG INJ. IV ONE (09:43)
[2020-09-25 09:49] LABS: ALBUMIN 4.6 g/dL (3.5-5.0); ALKALINE PHOSPHATASE 92 U/L (38-126); ANION GAP 14.6 MEQ/L (5-15); BLOOD UREA NITROGEN 11 mg/dL (9-20); CHLORIDE 109 mmol/L (98-107); Calcium 9.4 mg/dL (8.4-10.2); Carbon Dioxide 25 mmol/L (22-30); Creatinine 1 0.93 mg/dL (0.66-1.25); EST GLOMERULAR FILTRATION RATE > 60.0 ML/MIN; Glucose 140 mg/dL (74-106); Potassium 4.3 mmol/L (3.5-5.1); SGOT/AST 27 U/L (17-59); SGPT/ALT 34 U/L (0-50); SODIUM 144 mmol/L (137-145); Total Protein 7.5 g/dL (6.3-8.2)
[2020-09-25 10:16] LABS: Absolute Neutrophil Ct (ANC) 11.25 (1.4-6.9); BASOPHIL % 0.2 % (0.0-0.4); Basophil (Absolute #) 0.03 (0-0.4); Eosinophil % 0.6 % (0.00-5.0); Eosinophil (Absolute #) 0.08 (0-0.5); Hematocrit 46.6 % (42-50); Lymphocyte (Absolute #) 1.61 (1.0-4.6); Lymphocytes % 11.1 % (24.0-44.0); Mean Cell Volume 95.3 fl (78-100); Mean Corpuscular Hemoglobin 30.7 pg (26-32); Mean Corpuscular Hgb Concent. 32.2 g/dl (32-36); Mean Platelet Volume 9.2 fl (7.5-11.0); Monocyte (Absolute #) 1.51 (0.0-1.3); Monocytes % 10.4 % (0.0-12.0); Neutrophil % 77.7 % (36.0-66.0); Platelet Count 354 K/mm3 (150-450); Red Blood Count 4.89 M/mm3 (4.1-5.6); Red Cell Distribution Width 13.7 % (11.5-14.0); White Blood Count 14.5 K/mm3 (4.0-10.5)
--- NOTE | 2020-09-25 10:17 | ERPHSYRPT ---
- History of Present Illness Time Seen by Provider: 09/25/20 09:55 Source: patient Exam Limitations: no limitations Patient Subjective Stated Complaint: pt here for lower back pain that goes into right leg since yesterday, with numbness to rigth leg. he states he was lifting heavy objects yesterday Triage Nursing Assessment: pt alert, walked in, holding right leg, face mask in place, resp easy, skin w/d/p Physician History: Patient is a 45-year-old male presents to our ED with complaints of acute on chronic low back pain. Patient states he was moving boxes and injured his back. Patient is known to have slipped disks. Patient states that he is not experiencing pain from his back down to his right leg. Patient also experiencing a patch of numbness to his right lateral thigh. Pain described as an ache. No trauma. No fever. No recent back procedure. Patient denies change in bowel bladder function. No saddle anesthesia. Symptoms are moderate in intensity. Straight leg raise reproduces symptoms. Pain improves with rest. Patient states otherwise healthy. He voices no other complaints or concerns at this time. Timing/Duration: yesterday Method of Injury: lifting Quality: radiating Back Pain Location: lumbar spine Back Pain Radiation: lower legs (New radiates down right lower extremity.) Severity of Pain-Max: moderate Severity of Pain-Current: mild Modifying Factors: Improves With: movement Associated Symptoms: numbness in legs/feet, lower back pain, No fever, No urinary incontinence, No loss of bowel control, No nausea, No vomiting, No light-headedness, No dizziness, No weakness Previous symptoms: same symptoms as today (Patient had similar symptoms approximately 2 years ago.) Allergies/Adverse Reactions: No Known Drug Allergies Allergy (Verified 09/25/20 08:26) Home Medications: Atorvastatin Calcium [Lipitor] 80 mg PO DAILY 07/24/20 [History] Losartan/Hydrochlorothiazide [Losartan-Hctz 50-12.5 mg Tab] 1 tab PO DAILY 07/24/20 [History] Tizanidine HCl 2 mg PO TID 07/24/20 [History] Tramadol HCl 50 mg [Ultram 50 mg] 1 tab PO QID 07/24/20 [History] Hx Tetanus, Diphtheria Vaccination/Date Given: Yes Hx Influenza Vaccination/Date Given: No Hx Pneumococcal Vaccination/Date Given: No Immunizations Up to Date: Yes Travel Risk - International Travel Have you traveled outside of the country in past 3 weeks: No - Coronavirus Screening Are you exhibiting any of the following symptoms?: No Close contact with a COVID-19 positive Pt in past 14-21 Days: No - Vaccine Status Have you recieved a Covid-19 vaccination: No - Review of Systems Constitutional: No Symptoms, No Fever, No Chills Eyes: No Symptoms Ears, Nose, & Throat: No Symptoms Respiratory: No Symptoms, No Cough, No Dyspnea Cardiac: No Symptoms, No Chest Pain, No Edema, No Syncope Abdominal/Gastrointestinal: No Symptoms, No Abdominal Pain, No Nausea, No Vomiting, No Diarrhea Genitourinary Symptoms: No Symptoms, No Dysuria Musculoskeletal: No Symptoms, No Back Pain, No Neck Pain Skin: No Symptoms, No Rash Neurological: No Symptoms, No Dizziness, No Focal Weakness, No Sensory Changes Psychological: No Symptoms Endocrine: No Symptoms Hematologic/Lymphatic: No Symptoms Immunological/Allergic: No Symptoms All Other Systems: Reviewed and Negative - Past Medical History Pertinent Past Medical History: Yes Neurological History: No Pertinent History ENT History: No Pertinent History Cardiac History: High Cholesterol, Hypertension Respiratory History: Asthma, Bronchitis Endocrine Medical History: No Pertinent History Musculoskeletal History: Arthritis, Other GI Medical History: No Pertinent History History: No Pertinent History Psycho-Social History: No Pertinent History Male Reproductive Disorders: No Pertinent History Other Medical History: herniated disk L4-L5. back pain - Past Surgical History Past Surgical History: Yes Neuro Surgical History: No Pertinent History Cardiac: No Pertinent History Respiratory: No Pertinent History Gastrointestinal: No Pertinent History Genitourinary: No Pertinent History Musculoskeletal: No Pertinent History Male Surgical History: No Pertinent History Other Surgical History: cyst on buttock removed - Social History Smoking Status: Current every day smoker How long have you smoked: 20 years Exposure to second hand smoke: Yes Drug Use: none Patient Lives Alone: No - Nursing Vital Signs Nursing Vital Signs: Initial Vital Signs Pulse Rate 76 09/25/20 08:14 Respiratory Rate 20 09/25/20 08:14 Blood Pressure 154/98 09/25/20 08:14 O2 Sat by Pulse Oximetry 99 09/25/20 08:14 Pain Scale Pain Intensity [Back] 10 Pain Intensity 9 - Physical Exam General Appearance: no apparent distress, alert Eye Exam: PERRL/EOMI, eyes nml inspection Neck Exam: normal inspection, non-tender, supple, full range of motion, No meningismus, No midline tenderness Respiratory Exam: normal breath sounds, lungs clear, No respiratory distress Cardiovascular Exam: regular rate/rhythm, normal heart sounds Gastrointestinal Exam: soft, other (No pulsatile abdominal masses.), No tender ness, No mass Back Exam: normal range of motion (Motion limited due to pain and spasms.), muscle spasm, other (Tenderness palpation midline lumbar spine. Overlying soft tissue intact. No signs of trauma.) Extremity Exam: normal inspection, normal range of motion, other (Positive straight leg raise right lower extremity. Pain also reproduced with dorsiflexion of the right ankle.), No calf tenderness, No pedal edema Peripheral Pulses: dorsalis-pedis (R): 2+, dorsalis-pedis (L): 2+ Neurologic Exam: alert, oriented x 3, cooperative, health economist II-XII nml as tested, normal mood/affect, nml station & gait, sensation nml, No motor deficits Skin Exam: normal color, warm, dry, No rash SpO2 Interpretation: normal O2 Delivery: Room Air - Course Nursing assessment & vital signs reviewed: Yes Ordered Tests: Active Orders 24 hr Category Date Time Status IV Insertion STAT Care 09/25/20 09:16 Active LUMBAR SPINE W/O [CT] Stat Exams 09/25/20 09:42 Completed CBC W DIFF Stat Lab 09/25/20 09:35 Completed CMP Stat Lab 09/25/20 09:35 Completed UA W/RFX UR CULTURE Stat Lab 09/25/20 10:55 Completed Medication Summary Discontinued Medications Generic Name Dose Route Start Last Admin Trade Name Sheryl PRN Reason Stop Dose Admin Dexamethasone Sodium Phosphate 10 mg 09/25/20 09:43 09/25/20 10:36 Decadron 10mg Inj. IV 09/25/20 09:44 Not Given STAT ONE Ketorolac Tromethamine 30 mg 09/25/20 09:16 09/25/20 09:39 Toradol 30 Mg Injection IV 09/25/20 09:17 30 mg STAT ONE Administration Ketorolac Tromethamine Confirm 09/25/20 09:37 Toradol 30 Mg Injection Administered 09/25/20 09:38 Dose 30 mg .ROUTE .STK-MED ONE Methocarbamol 500 mg 09/25/20 11:00 Robaxin 500 Mg PO 10/25/20 10:59 QID PRN PRN MUSCLE SPASMS Tizanidine HCl 4 mg 09/25/20 11:48 Zanaflex 4 Mg PO 09/25/20 11:49 ONCE STA Lab/Rad Data: Laboratory Result Diagrams 09/25/20 09:35 09/25/20 09:35 Laboratory Results 09/25/20 09/25/20 09/25/20 Range/Units 10:55 09:35 09:35 WBC 14.5 H (4.0-10.5) K/mm3 RBC 4.89 (4.1-5.6) M/mm3 Hgb 15.0 (12.5-18.0) gm/dl Hct 46.6 (42-50) % MCV 95.3 (78-100) fl MCH 30.7 (26-32) pg MCHC 32.2 (32-36) g/dl RDW 13.7 (11.5-14.0) % Plt Count 354 (150-450) K/mm3 MPV 9.2 (7.5-11.0) fl Gran % 77.7 H (36.0-66.0) % Eos # (Auto) 0.08 (0-0.5) Absolute Lymphs (auto) 1.61 (1.0-4.6) Absolute Monos (auto) 1.51 H (0.0-1.3) Lymphocytes % 11.1 L (24.0-44.0) % Monocytes % 10.4 (0.0-12.0) % Eosinophils % 0.6 (0.00-5.0) % Basophils % 0.2 (0.0-0.4) % Absolute Granulocytes 11.25 H (1.4-6.9) Basophils # 0.03 (0-0.4) Sodium 144 (137-145) mmol/L Potassium 4.3 (3.5-5.1) mmol/L Chloride 109 H (98-107) mmol/L Carbon Dioxide 25 (22-30) mmol/L Anion Gap 14.6 (5-15) MEQ/L BUN 11 (9-20) mg/dL Creatinine 0.93 (0.66-1.25) mg/dL Estimated GFR > 60.0 ML/MIN Glucose 140 H (74-106) mg/dL Calcium 9.4 (8.4-10.2) mg/dL Total Bilirubin 0.20 (0.2-1.3) mg/dL AST 27 (17-59) U/L ALT 34 (0-50) U/L Alkaline Phosphatase 92 (38-126) U/L Serum Total Protein 7.5 (6.3-8.2) g/dL Albumin 4.6 (3.5-5.0) g/dL Urine Color YELLOW (YELLOW) Urine Appearance CLEAR (CLEAR) Urine pH 5.0 (5-6) Ur Specific [place] 1.029 (1.005-1.025) Urine Protein 30 (Negative) Urine Ketones NEGATIVE (NEGATIVE) Urine Blood NEGATIVE (0-5) [place]/ul Urine Nitrite NEGATIVE (NEGATIVE) Urine Bilirubin NEGATIVE (NEGATIVE) Urine Urobilinogen NEGATIVE (0-1) mg/dL Ur Leukocyte Esterase NEGATIVE (NEGATIVE) Urine WBC (Auto) NONE (0-5) /HPF Urine RBC (Auto) 3-5 (0-2) /HPF U Epithel Cells (Auto) NONE (FEW) /HPF Urine Bacteria (Auto) NONE (NEGATIVE) /HPF Urine Mucus (Auto) SLIGHT (NEGATIVE) /HPF Urine Culture Reflexed NO (NO) Urine Glucose >=500 (NEGATIVE) mg/dL Slides for Path Review YES - Progress Progress: improved Progress Note: 09/25/20 11:57 Patient reassessed. Pain improved. Patient is ready for discharge. Patient requesting Zanaflex for home. At this is helped him in the past. Patient received the prescription for Toradol as well. CT scan reveals no acute findings. Patient has an appointment scheduled for his pain specialist. Will discharge at this time. Patient voices no other complaints concerns at this time. Patient agrees to follow-up with his primary care doctor and/or his pain specialist within 48 hours for reevaluation. Counseled pt/family regarding: lab results, diagnosis, rad results - Departure Departure Disposition: Home Clinical Impression: Sciatica, Lumbosacral strain, Vascular calcification, Bulging disc, Degenerative arthritis of lumbar spine, Muscle spasm Condition: Stable Critical Care Time: No Referrals: LAKSHMI BULLOCK [employer] [employer] [Primary Care Provider] - Additional Instructions: Discharge/Care Plan JONAH PALEmily Cano was seen on 09/25/20 in the Emergency Room. The patient was counseled regarding Diagnosis,Lab results, Imaging studies, need for follow up and when to return to the Emergency Room. Prescriptions given: Discharge Note I have spoken with the patient and/or caregivers. I have explained the patient's condition, diagnosis and treatment plan based on the information available to me at this time. I have answered the patient's and/or caregiver's questions and addressed any concerns. The patient and/or caregivers have as good understanding of the patient's diagnosis, condition and treatment plan as can be expected at this point. The vital signs have been stable. The patient's condition is stable and appropriate for discharge from the emergency department. The patient will pursue further outpatient evaluation with the primary care physician or other designated or consulting physician as outlined in the discharge instructions. The patient and/or caregivers are agreeable to this plan of care and follow-up instructions have been explained in detail. The patient and/or caregivers have received these instruction. The patient/and or caregivers are aware that any significant change in condition or worsening of symptoms should prompt an immediate return to this or the closest emergency department or call 911. Prescriptions: Ketorolac Tromethamine [Toradol] 10 mg PO TID 5 Days #15 tablet Tizanidine HCl 4 mg [Zanaflex 4 MG] 2 mg PO BID PRN 3 Days #6 tablet PRN Reason: Muscle Spasms
[2020-09-25] MEDS ORDERED: Robaxin 500 MG PO PRN (11:00)
[2020-09-25 11:15] LABS: Appearance CLEAR (CLEAR); Bilirubin NEGATIVE (NEGATIVE); Blood NEGATIVE Ery/ul (0-5); Glucose >=500 mg/dL (NEGATIVE); Ketones NEGATIVE (NEGATIVE); Leukocyte Esterase NEGATIVE (NEGATIVE); Mucus SLIGHT /HPF (NEGATIVE); Nitrite NEGATIVE (NEGATIVE); Protein,Urine Dip 30 (Negative); Specific Gravity 1.029 (1.005-1.025); Urobilinogen NEGATIVE mg/dL (0-1)
--- NOTE | 2020-09-25 11:20 | XRAY ---
Exam: CT of the lumbar spine without IV contrast from 09/25/2020. CTDI: 38.28 mGy Comparison: MRI of the lumbar spine without IV contrast from 05/24/2015. Indication: 45-year-old male with back pain and right leg pain. He gives a prior history of unspecified hernia surgery. Technique: Non-IV contrast axial images were obtained from the mid T11 down through the lumbosacral junction to the lower sacrum. Reconstructed coronal and sagittal images were created and reviewed. In addition, angled axial images were obtained parallel to each interspace from T12-L1 through L5-S1. Findings: I see no acute fracture, AP subluxation, or spondylolysis. There is moderate degenerative disc disease at L5-S1 characterized by interspace narrowing, vacuum disc phenomena, and mild anterior and posterior vertebral endplate spurring. I also note moderate left-sided L5-S1 facet joint spurring. No focal bone destruction is seen. Mild atherosclerotic vascular calcification is seen within the distal abdominal aorta and proximal iliac arteries. At T12-L1, the disc and thecal sac appear unremarkable. The neural foramen are open bilaterally. The facet joints appear unremarkable. At L1-L2, the disc and spinal sac appear unremarkable. The neural foramen are patent bilaterally. The facet joints appear unremarkable. At L2-L3, there is slight diffuse bulging of the disc without evidence of focal disc herniation or spinal stenosis. The neural foramen appear unremarkable. The facet joints appear unremarkable. At L3-L4, the disc and thecal sac appear unremarkable revealing no herniation or significant spinal stenosis. The neural foramen are patent bilaterally. The facet joints reveal minimal hypertrophic change. At L4-L5, the disc and thecal sac appear unremarkable. No disc herniation or spinal stenosis is seen. The neural foramen are open bilaterally. The facet joints reveal no significant change. At L5-S1, I again note moderate degenerative disc disease. There appears to be some mild diffuse annular bulging, best appreciated on the sagittal images. I do not see a definite focal disc herniation or central canal spinal stenosis. There is moderate to marked narrowing of the inferior aspect of both lateral neural foramen at the disc level and mild narrowing of the upper aspect of the bilateral neural foramen above the disc level. There is mild to moderate left L5-S1 facet joint osteoarthritic spurring and minimal right L5-S1 facet joint osteoarthritic spurring. Impression: 1. I see no evidence of lumbar spine fracture, spondylolisthesis, or spondylolysis. No focal bone destruction is seen. 2. Moderate degenerative disc disease at L5-S1 and mild to moderate left L5-S1 facet joint osteoarthritis are seen. 3. I see no evidence of focal disc herniation or central canal spinal stenosis. However, there appears to be some narrowing of the L5-S1 neural foramen bilaterally, as discussed above.
[2020-09-25 11:47] LABS: Slide Review 1 YES
[2020-09-25] MEDS ORDERED: Zanaflex 4 MG PO STA (11:48)
[2020-09-25] MEDS ORDERED: MORPHINE SULFATE 2 MG INJ ONE (12:30)
[2020-09-25] MEDS ORDERED: MORPHINE SULFATE 2 MG INJ IV ONE (12:30)
[2020-09-25 12:59] VITALS: BP 121/91; PULSE 89; O2SAT 99
== END 2020-09-25 12:59 | disposition home or self-care (01) ==
LOC: ED 08:14
DX: S39.012A Strain of muscle, fascia and tendon of lower back, initial encounter (principal); M54.40 Lumbago with sciatica, unspecified side; M62.830 Muscle spasm of back; M47.816 Spondylosis without myelopathy or radiculopathy, lumbar region; X50.0XXA Overexertion from strenuous movement or load, initial encounter; Z79.899 Other long term (current) drug therapy; I10 Essential (primary) hypertension; E78.00 Pure hypercholesterolemia, unspecified
CPT/HCPCS: 36000; 36415; 72131; 80053; 81001; 85025; 96374; 96375; 99284; J1885; J2270; A9270-GY